=== PATIENT | male | born 1980 | race Caucasian/White ===

== ENCOUNTER 2016-12-25 12:11 | Emergency (ER) | payer OTHER ==
[~2016-12-25] VITALS: Ht 175.3 cm; Wt 55.8 kg
[~2016-12-25 12:11] MED LIST: FLEXERIL10 MG PO; METHADONE10 MG PO; NAPROSYN500 MG PO; NIFEDIPINE10 MG PO; NOHOMEMEDS; ROXICODONE15 MG PO; SOMA350 MG PO
[2016-12-25] MEDS ORDERED: LEVAQUIN750 MG PO (13:59)
[2016-12-25] MEDS ORDERED: PREDNISONE20 MG PO (13:59)
[2016-12-25] MEDS ORDERED: VENTOLIN HFA18 GM IH (13:59)
[2016-12-25 14:17] VITALS: BP 119/67
== END 2016-12-25 14:18 | disposition home or self-care (01) ==
LOC: EME 12:11
DX: J18.9 Pneumonia, unspecified organism (principal); J02.9 Acute pharyngitis, unspecified; M25.511 Pain in right shoulder; M54.5 Low back pain; F17.200 Nicotine dependence, unspecified, uncomplicated; Z71.6 Tobacco abuse counseling
CPT/HCPCS: 71020; 99281; 99285